=== PATIENT | male | born 1945 | race Caucasian/White ===

== ENCOUNTER → 2016-02-13 | Day surgery (SDC) | payer OTHER ==
[~2016-02-13] VITALS: Ht 180.3 cm; Wt 164.8 kg
[~2016-02-13] MED LIST: *RESP: ALBUTEROL 2.5 MG/3 ML NEB (PRN) PERIprocedural Use ONLY NEB ONE; ACETAMINOPHEN/HYDROcodone 325 MG/5 MG TAB PO PRN; ALLO300T2 PO; ASCO500C PO; ASPI1TAB69 PO; BUPIVACAINE/EPINEPHRINE 0.25% PF 30 ML VIAL ONE; DEXAMETHASONE SOD PHOS 4 MG/ML VIAL ONE; DEXMEDETOMIDINE INJ 50 ML ONE; DO NOT ADM ANY ANTICOAGULANT DRUGS XX PRN; FAMOTIDINE 20 MG/2 ML VIAL ONE; FISH120014 PO; FURO40TA PO; INSULIN HUMAN REGULAR 1,000 UNITS/10 ML VIAL SQ PRN; KETAMINE HCL 500 MG/5 ML VIAL ONE; LACTATED RINGER'S 1000 ML IV SCH; LIDOCAINE 0.5%/EPINEPHrine 1:200,000 SOLN 50 ML VIAL ONE; LIDOCAINE 1%/EPINEPHrine 1:100,000 SOLN 20 ML VIAL ONE; LISI40TA PO; METOCLOPRAMIDE HCL 10 MG/2 ML VIAL ONE; METOPROLOL TARTRATE 25 MG TAB PO PRN; MIDAZOLAM HCL 5 MG/5 ML VIAL ONE; MULTTAB67 PO; PRAV10TA PO; PROBCAP4 PO; PROPOFOL 200 MG/20 ML AMP IV ONE; SODIUM CHLORID 0.9% 500 ML IV SCH; VENTAER INH; VITA10003 PO; VITA400C2 PO
[2016-02-13 11:12] VITALS: BP 123/80; PULSE 78; RESP 20; TEMP 97.8; O2SAT 93
[2016-02-13 11:51] LABS: AUTOMATED NEUTROPHIL # 5.1 TH/MM3 (1.8-7.7); BASOPHIL # 0.1 TH/MM3 (0-0.2); BASOPHIL % 1.3 % (0.0-2.0); EOSINOPHIL # 0.2 TH/MM3 (0-0.4); EOSINOPHIL % 2.5 % (0.0-4.0); HEMATOCRIT 50.2 % (39.0-51.0); HEMO FLAGS DIFF FINAL; LYMPH % 15.9 % (9.0-44.0); LYMPHOCYTE # 1.1 TH/MM3 (1.0-4.8); MEAN CELL VOLUME 93.4 FL (80.0-100.0); MEAN CORPUSCULAR HEMOGLOBIN 31.1 PG (27.0-34.0); MEAN CORPUSCULAR HGB CONC 33.3 % (32.0-36.0); MONO % 8.7 % (0.0-8.0); NEUT % 71.6 % (16.0-70.0); PLATELET COUNT 138 TH/MM3 (150-450); RED BLOOD COUNT 5.37 MIL/MM3 (4.50-5.90); WHITE BLOOD COUNT 7.1 TH/MM3 (4.0-11.0)
--- NOTE | 2016-02-13 12:22 | EKG ---
Date Performed: 02/13/2016 Time Performed: 10:29:21 PTAGE: 70 years EKG: Sinus rhythm WITH FIRST DEGREE AV BLOCK MARKED RIGHT AXIS DEVIATION RIGHT BUNDLE BRANCH BLOCK ANTEROSEPTAL MYOCAR DIAL INFARCTION , OF INDETERMINATE AGE ABNORMAL ECG NO PREVIOUS TRACING DOCTOR: Tanner Koehler Interpretating Date/Time 02/13/2016 12:20:01
[2016-02-13 13:18] LABS: BICARBONATE 25.4 MEQ/L (21.0-32.0); POTASSIUM 3.6 MEQ/L (3.5-5.1)
--- NOTE | 2016-02-13 14:06 | MR ---
cc: RANDOLPH LEE MD DATE: 02/13/2016 PREOPERATIVE DIAGNOSIS Heme positive stool history of polyps. POSTOPERATIVE DIAGNOSIS No polyps. PROCEDURE Partial colonoscopy to the ascending colon with no cecal visualization. SURGEON: Randolph Lee MD. ANESTHESIA: Monitored anesthesia care. INDICATION This is a 70-year-old with heme-positive stool history of polyps presents for colonoscopy. PROCEDURE The Olympus colonoscope was introduced in the anus to the area just proximal to the hepatic flexure. The colon was redundant and due to patients obesity, inability to reposition when on the table. It was not possible to pass the instrument further, abdominal pressure maneuvers to improve the motion of the instrument. The scope was withdrawn. Bowel prep was excellent with no lesions identified. PLAN Recommend a CT colonoscopy with the patient prior to completing his colonic evaluation. MD ESPERANZA Rubio/christos /1:46 PM /1:54 PM
[2016-02-13 14:47] VITALS: BP 110/65; PULSE 65; RESP 18; TEMP 97.3; O2SAT 95
--- NOTE | 2016-02-13 14:48 | MR ---
cc: RANDOLPH LEE MD DATE: 02/13/2016 PREOPERATIVE DIAGNOSIS: Posterior intersphincteric fistula. POSTOPERATIVE DIAGNOSIS Posterior intersphincteric fissula. PROCEDURE Fistulotomy SURGEON Randolph Lee MD. ANESTHESIA Monitored anesthesia care, local. 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 PROCEDURE The perianal region was prepped, draped in sterile fashion. The left lateral position on the operating stretcher, following the introduction of the intravenous anesthesia. 30 cc of 0.50% Xylocaine with epinephrine was infiltrated and excellent block was obtained. The anal canal was examined. There was a posterior midline fistula opening the external skin just distal to the verge. The probe was passed to the dentate line and fistulotomy was performed. The distal portion internal sphincter was divided. Uncinate process. The intersphincteric fistula tract was biopsied and redundant skin was excised. The patient tolerated the procedure well. Sponge counts correct. Blood loss was minimal. There was no other pathology identified in the anus. MD ESPERANZA Rubio/christos /1:46 PM /2:39 PM .2
== END | disposition home or self-care (01) ==
LOC: HSDC 09:56
PROVIDERS: ATTEND Colon & Rectal Surgery
DX: K60.3 Anal fistula (principal); K92.1 Melena; I10 Essential (primary) hypertension; E78.5 Hyperlipidemia, unspecified; Z86.010 Personal history of colon polyps
CPT/HCPCS: 00902; 45378; 46270; 80048; 85025; 88304; 93005; C9399; J1100; J2250; J2765; J7613; 94664